=== PATIENT | female | born 1965 | race Caucasian/White ===

== ENCOUNTER → 2021-02-13 | Outpatient (CLI) | payer BC, SELFPAY | END | disposition home or self-care (01) | PROVIDERS: PCP Internal Medicine; Referring Provider Otolaryngology Otolaryngology/Facial Plastic Surgery; Visit Provider Otolaryngology Otolaryngology/Facial Plastic Surgery | DX: J32.9 Chronic sinusitis, unspecified (principal) | CPT/HCPCS: 87070; 87077; 87186; 87205 ==

== ENCOUNTER → 2021-03-15 07:23 | Outpatient (CLI) | payer BC, SELFPAY ==
--- NOTE | 2021-03-15 07:31 | US_ITS ---
STUDY: THYROID ULTRASOUND REASON FOR EXAM: Female, 55 years old. FATIGUE abnormal labs TECHNIQUE: Ultrasound evaluation of the thyroid was performed with real-time and static ramirez-scale imaging. COMPARISON: None. FINDINGS: RIGHT LOBE: The right lobe of the thyroid gland measures 4.3 cm x 1.2 cm x 1 cm. There is a heterogeneous echotexture. There is a 1.6 cm x 0.9 cm x 1 cm solid hypoechoic nodule in the inferior pole. LEFT LOBE: The left lobe of the thyroid gland measures 3.9 cm x 1.2 cm x 0.9 cm. There is a heterogeneous echotexture. There are no demonstrated solid, cystic or complex lesions. ISTHMUS: The isthmus measures 3 mm. The regional lymph nodes are normal. US/Thyroid IMPRESSION: Heterogeneous appearance of both the right and left lobes of the thyroid gland. 1.6 HERBERT by 0.9 cm x 1 cm hypoechoic solid nodule in the inferior pole of the right lobe. Correlation with a nuclear medicine thyroid uptake and scan recommended. Electronically Signed: Jono Black MD at 9:41 EDT , Service support ,
== END ==
PROVIDERS: PCP Internal Medicine; Referring Provider Family Medicine; Visit Provider Family Medicine
DX: E04.1 Nontoxic single thyroid nodule (principal); R53.83 Other fatigue
CPT/HCPCS: 76536

== ENCOUNTER → 2021-04-06 | Outpatient (CLI) | payer BC, SELFPAY ==
[2021-04-06 09:20] LABS: (24 HR) Urine Calcium 111.7 mg/24 HR (42.0-353.0); 24HR UR TOTAL VOLUME 1025 ml; Calcium Urine pH Range 1; Urine Calcium (Random) 10.9 (Not Estab.)
[2021-05-03 12:37] LABS: 24H Urine Creat. Total Vol. 1.03 L; 24HR. Urine Creatinine 1.11 g/24 HR (0.70-1.90)
== END | disposition home or self-care (01) ==
LOC: LABSPEC 08:23
PROVIDERS: PCP Internal Medicine; Referring Provider Family Medicine; Visit Provider Family Medicine
DX: E83.52 Hypercalcemia (principal)
CPT/HCPCS: 81050; 82340; 82570

== ENCOUNTER 2021-04-25 12:34 | Emergency (ER) | payer BC, SELFPAY ==
[2021-04-25 12:35] VITALS: BP 138/81; PULSE 78; RESP 18; TEMP 36.6; O2SAT 100; BMI 24.3
[2021-04-25 13:00] VITALS: RESP 16
--- NOTE | 2021-04-25 13:11 | US_ITS ---
We are attempting to reach an attending provider to discuss findings. An addendum with communication details will be sent when the communication is complete. STUDY: ABDOMINAL ULTRASOUND - RIGHT UPPER QUADRANT REASON FOR VISIT: Female, 55 years old PAIN TECHNIQUE: Ultrasound evaluation of the right upper quadrant was performed with real-time and static ramirez-scale imaging. TECHNICAL QUALITY: Adequate. COMPARISON: None. FINDINGS: Pancreas: Visualized portions of pancreas are unremarkable. Liver: Measures 15.7 cm. Liver shows normal echogenicity. No masses identified. Gallbladder: No stones or wall thickening. Positive sonographic Mendes''s sign. Common bile duct: Measures 6 mm. No intraductal stones identified. Right kidney: Measures 9.0 cm in length. Normal contour. No cysts. No masses, stones, or hydronephrosis identified. Renal cortical thickness appears normal. Additional findings: None. US/Gallbladder IMPRESSION: Positive sonographic MENDES sign without focal imaging abnormality demonstrated is nonspecific. Correlate clinically to exclude acute cholecystitis. Electronically Signed: Orville Vargas MD at 15:34 EDT Tel , Service support ,
[2021-04-25] MEDS: 0.9% Normal Saline 1,000 ML 1000 ML IV (13:25)
[2021-04-25 13:33] LABS: Absolute Lymphocyte Count 1.99 X10^3/uL (0.83-4.51); Absolute Neutrophil Count 2.5 X10^3/uL (2.0-7.7); Basophil# 0.04 X10^3/uL; Basophil% 0.8 % (0-1); Eosinophil# 0.11 X10^3/uL; Eosinophils% 2.1 % (0-5); Hematocrit 41.6 % (37-47); Hemoglobin 13.3 g/dL (12.0-15.0); Lymphocyte # 1.99 X10^3/ul (0.83-4.51); Lymphocyte % 38.6 % (19-41); Mean Corpuscular Hgb 29.9 pg (27.0-32.0); Mean Corpuscular Volume 93.5 fL (81-99); Mean Platelet Vol. 9.2 fl (6.2-12.0); Monocyte% 9.7 % (0-10); NRBC Flagged by Analyzer 0 % (0-5); Neutrophil # 2.51 X10^3/uL (2.7-7.7); Neutrophil % 48.6 % (47-70); Platelet Count 261 K/mm3 (150-450); RBC Distribution Width CV 13.2 % (11.6-14.6); RBC Distribution Width SD 45.4 fl (35.1-43.9); Red Blood Count 4.45 M/mm3 (4.2-5.4); White Blood Count 5.2 K/mm3 (4.4-11.0)
[2021-04-25 13:50] LABS: ALB/GLOB Ratio 0.9 RATIO (0.9-2.4); AST(SGOT) 25 U/L (15-37); Alanine Aminotransfer ALT/SGPT 39 U/L (13-56); Albumin, Serum 3.6 g/dL (3.2-5.0); Alkaline Phosphatase 72 U/L (45-117); Anion Gap 5 (5-15); BUN 17 mg/dL (7-18); Chloride 105 mmol/L (98-107); Creatinine, Serum 0.77 mg/dL (0.55-1.02); EST Glomerular Filtration Rate 82 mL/min (>60); Est Glom Filt Rate - Afr Amer 99 mL/min (>60); Estimated Creatinine Clearance 73.41 ml/min; Glucose 100 mg/dL (74-106); Lipase 232 U/L (73-393); Potassium 3.5 mmol/L (3.5-5.1); Protein, Total 7.6 g/dL (6.4-8.2); Sodium Level 140 mmol/L (136-145)
--- NOTE | 2021-04-25 13:57 | ED.VIS.GI ---
HPI HPI - GI History of Present Illness Chief Complaint: Abd Pain Informant: patient Narrative Narrative: Intermittent increasing epigastric abdominal pain for the past month however worsened over the past 5 days. Pain worse with eating. Reports gastric ulcer in the sixth grade. Denies vomiting or diarrhea. Last bowel movement yesterday. Nonbloody, no melena. Decreased urine output over 2 days due to decreased p.o. intake. PCP started her on omeprazole and Carafate a month ago that she has been taking. History of hysterectomy in the past.. No fevers.. Prior similar symptoms: Yes PFSH PFSH Medical History High calcium levels Hypothyroidism Tumor, thyroid Home Medications levothyroxine 88 mcg PO QWEEK 04/25/21 [History Last Taken Unknown] levothyroxine 100 mcg PO QWEEK 04/25/21 [History Last Taken Unknown] omeprazole 40 mg PO DAILY 04/25/21 [History Last Taken Unknown] sucralfate 1 g PO 4X/DAY 04/25/21 [History Last Taken Unknown] Allergy/AdvReac Type Severity Reaction Status Date / Time ciprofloxacin Allergy Other Verified 04/25/21 12:38 erythromycin base Allergy Rash Verified 04/25/21 12:39 levofloxacin Allergy Other Verified 04/25/21 12:39 moxifloxacin Allergy Other Verified 04/25/21 12:40 Penicillins Allergy Hives Verified 04/25/21 12:38 morphine AdvReac Vomiting Verified 04/25/21 12:38 Surgical History H/O: hysterectomy Social History Smoking Status: Never smoker ROS ROS ED Constitutional Constitutional ED: Denies chills, fever(s) or sweats Eyes Eyes: Denies change in vision ENT ENT ED: Denies dysphagia or sore throat Cardiovascular Cardiovascular: Denies chest pain, leg edema, palpitations or racing heartbeat Respiratory/Chest Respiratory/Chest: Denies cough, dyspnea or dyspnea on exertion Gastrointestinal Gastrointestinal: Reports abdominal pain; Denies diarrhea, nausea or vomiting Genitourinary Genitourinary ED: Denies dysuria, hematuria or urinary frequency Musculoskeletal Musculoskeletal: Denies back pain, extremity pain or neck pain Integumentary Denies rash or wounds Neurologic Neurologic: Denies headache(s), paresthesias or weakness EXAM Physical Exam Const Vital Signs: 04/25/21 12:35 04/25/21 13:00 04/25/21 15:00 Temperature 97.8 F Temperature Source Temporal Pulse Rate 78 Respiratory Rate 18 16 16 Blood Pressure 138/81 H Blood Pressure Mean 100 Pulse Ox 100 Oxygen Delivery Method Room Air Positive well nourished and well developed General Appearance ED: well developed and NAD HEENT Reports moist mucous membranes normocephalic and atraumatic Eyes PERRL, EOMs intact bilaterally and conjunctivae normal General Eye ED: Yes normal appearance of both eyes Neck no lymphadenopathy and supple General: Negative for tenderness Chest Wall Chest: Negative for tenderness Resp normal respiratory effort and normal air movement Effort and Inspection: symmetric chest movement; Negative for respiratory distress Cardio regular rate, regular rhythm and no murmurs Peripheral Pulses: pulses 2+ throughout GI normal to inspection, nondistended, normoactive bowel sounds GI Narrative: Tender palpation epigastric mild right upper quadrant tenderness no guarding or rebound. Negative McBurney's. Palpation: Negative for guarding or rebound tenderness present Back/Spine no CVA tenderness and no thoracic nor lumbar tenderness Extremity normal to inspection General Extremety ED: Negative for edema or tenderness General Extremity: Negative for edema Neuro oriented x3 and no sensory deficits noted Sensorium / Orientation: awake and alert Skin no rashes or lesions noted and no wounds MDM MDM MDM Narrative Medical decision making narrative: Patient epigastric mild right upper quadrant pain. Abdominal labs are all normal. Ultrasound gallbladder positive Mendes sign's however no structural findings. Initially given Pepcid. She is given GI cocktail with states transient release of symptoms. She denies any rectal bleeding or melena. Discussed with patient increase her omeprazole to twice a day should continue Carafate. I did speak with GI Dr. Friend, he will follow-up as an outpatient. All questions were answered. Lab Data Attestation: I reviewed the patient's lab results. Labs: Laboratory Results - last 24 hr 04/25/21 04/25/21 13:21 13:21 WBC 5.2 RBC 4.45 Hgb 13.3 Hct 41.6 MCV 93.5 MCH 29.9 MCHC 32.0 RDW Std Deviation 45.4 H RDW Coeff of Sarah Beth 13.2 Plt Count 261 MPV 9.2 Immature Gran % (Auto) 0.200 Neut % (Auto) 48.6 Lymph % (Auto) 38.6 Zapata % (Auto) 9.7 Eos % (Auto) 2.1 Baso % (Auto) 0.8 Absolute Neuts (auto) 2.5 Absolute Lymphs (auto) 1.99 Nucleated RBC % 0 Sodium 140 Potassium 3.5 Chloride 105 Carbon Dioxide 30.0 Anion Gap 5 BUN 17 Creatinine 0.77 Estim Creat Clear Calc 73.41 Est GFR (MDRD) Af Amer 99 Est GFR (MDRD) Non-Af 82 BUN/Creatinine Ratio 22.0 H Glucose 100 Calcium 11.0 H Total Bilirubin 1.10 H AST 25 ALT 39 Alkaline Phosphatase 72 Total Protein 7.6 Albumin 3.6 Globulin 4.0 Albumin/Globulin Ratio 0.9 Lipase 232 Radiography Diagnostic Testing: Radiology Impression Gallbladder Ultrasound 04/25/21 13:11 IMPRESSION: Positive sonographic MENDES sign without focal imaging abnormality demonstrated is nonspecific. Correlate clinically to exclude acute cholecystitis. Electronically Signed: Orville Vargas MD at 15:34 EDT Tel , Service support , ADDENDUM: 04/25/21 1556 IMPRESSION: Positive sonographic MENDES sign without focal imaging abnormality demonstrated is nonspecific. Correlate clinically to exclude acute cholecystitis. N.B. : The above Results were Read Back by Orville Vargas MD to Ciro Suarez DO, DO, and understanding confirmed on 04/25/2021 15:49:42 (ET). Electronically Signed: Orville Vargas MD at 15:34 EDT Tel , Service support , Discharge Plan Triage Chief Complaint: Abd Pain ED Provider: Ciro Suarez Dx/Rx/DC Orders Clinical Impression: Gastritis, Abdominal pain Instructions: ED Gastritis (Adult) Prescriptions: No Action levothyroxine 88 mcg Capsule 88 mcg PO QWEEK RF: 0 sucralfate 100 mg/mL suspension 1 g PO 4X/DAY RF: 0 omeprazole 40 mg Capsule,Delayed Release(Dr/Ec) 40 mg PO DAILY RF: 0 levothyroxine 100 mcg Capsule 100 mcg PO QWEEK RF: 0 Primary Care Provider: Marva Stewart Referrals: Marva Stewart MD [Primary Care Provider] - David Mccann DO [STAFF PHYSICIAN] - 3-5 Days Activity Restrictions/Additional Instructions: Increase your omeprazole to twice a day. Continue Carafate. Follow-up with Dr. Mccann. Disposition Disposition: Home, Self Care Discharge Date/Time: 04/25/21 17:03
[2021-04-25] MEDS: Famotidine 200 MG/20 ML MDV 20 MG in 0.9% Normal Saline (Pres. free 8 ML 300 MG IV (14:01)
[2021-04-25 15:00] VITALS: RESP 16
[2021-04-25] MEDS: Mag Hydrox/Al Hydrox/Simeth 30 ML UDC PO (15:39)
== END 2021-04-25 17:03 | disposition home or self-care (01) ==
PROVIDERS: Emergency Provider Emergency Medicine; PCP Internal Medicine
DX: K29.70 Gastritis, unspecified, without bleeding (principal); R10.13 Epigastric pain; E03.9 Hypothyroidism, unspecified; Z79.899 Other long term (current) drug therapy
CPT/HCPCS: 76705; 80053; 83690; 85025; 96361; 96374; 99284; J7030; A4216; J3490

== ENCOUNTER 2021-04-27 07:00 | Day surgery (SDC) | payer BC, SELFPAY ==
[2021-04-27] VITALS (8 sets, daily range): BP systolic 114–128; BP diastolic 69–85; PULSE 65–80; RESP 14–18; TEMP 36.5–37.1; O2SAT 99–100; BMI 23.6
--- NOTE | 2021-04-27 | GASB_PTH ---
PATIENT: SERENITY MCGRATH LOC: EN U#:[id number] AGE/SX: 55/F ROOM: RE04/27/[address]: Dr. Lynne Quevedo MD : 1965 BED: DIS: 04/27/2021 SPEC #: [id number] RECD: 04/27/21 11:11 STATUS: KRISSY TANK #: [id number] EDDY: 04/27/21 00:[address]: Lynne Quevedo DEPT: SURGICAL PATHOLOGY RECD BY: Michael Maciel ENTERED: 04/27/21 11:11 SP TYPE: Gastric Bx OTHR DR: Dr. Marva Stewart MD Tissues: Gastric mucous membrane Procedures: Surgery Specimen Level IV HEADER OPERATION: EGD ([facility]) PRE-OP DIAGNOSIS: Epigastric pain TISSUE SUBMITTED: Biopsy antrum for H. pylori and path MICROSCOPIC DIAGNOSIS Gastric antrum, biopsy: Mild chronic gastritis. See comment. AM:hernan 04/30/2021 COMMENT The results of immunohistochemistry for Helicobacter pylori will be reported separately ([id number]). MICROSCOPIC DESCRIPTION Slides are reviewed. GROSS DESCRIPTION Received in fixative is one container labeled with the patient's name and designated biopsy antrum. The specimen consists of one irregular fragment of light soni soft tissue that measures 0.3 x 0.3 x 0.1 cm. The specimen is totally submitted in one cassette. / SJ:rg 04/27/21 TC:3 CPT: 05217
--- NOTE | 2021-04-27 07:41 | HP.PCM_ITS ---
History and Physical Date of Admission: 04/27/21 Date of Service: 04/26/21 Intake Vital Signs 04/26/21 13:15 Height 5 ft 5 in Weight: 143 lb BMI 23.8 BP 164/92 H Blood Pressure Location Rt brachial Position Sitting Respiration 18 Intake Visit Reasons: abd pain Chief Complaint: abd pain Hand Turner Required: No Is patient in pain?: Yes (epigastric abd ) Allergies ciprofloxacin Allergy (Verified 04/26/21 13:16) Other erythromycin base Allergy (Verified 04/26/21 13:16) Rash levofloxacin Allergy (Verified 04/26/21 13:16) Other moxifloxacin Allergy (Verified 04/26/21 13:16) Other Penicillins Allergy (Verified 04/26/21 13:16) Hives morphine Adverse Reaction (Verified 04/26/21 13:16) Vomiting Medications levothyroxine 88 mcg PO QWEEK 04/25/21 [History Confirmed 04/26/21] levothyroxine 100 mcg PO QWEEK 04/25/21 [History Confirmed 04/26/21] sucralfate 1 g PO 4X/DAY 04/25/21 [History Confirmed 04/26/21] pantoprazole 40 mg tablet,delayed release 40 mg PO DAILY #30 tab 04/26/21 [Rx Confirmed 04/26/21] [facility] Medical History (Updated 04/26/21 @ 13:[address] Lynne Quevedo MD) High calcium levels Hyperparathyroidism Hypothyroidism Tumor, thyroid Surgical History H/O: hysterectomy S/P section S/P tonsillectomy Status post cervical polyp removal Family History Mother Diabetes CAD (coronary artery disease) Hypertension Thyroid disorder Gastric ulcer Father Hypertension Grandmother Heart disease Grandfather Heart disease Thyroid disorder Aunt Cancer Uncle Thyroid disorder Social History Smoking Status: Never smoker alcohol intake: never HPI HPI HPI: SERENITY MCGRATH, is a 55 F who presents to the office today for abdominal pain. Patient states that it has been going on for couple months however the last 5 days has gotten worse. Complains of epigastric pain since she eats or drinks anything that gets worse otherwise she does have a constant dull ache there. Patient previously had history of gastric ulcer in 2017. Patient did start taking omeprazole about a month ago and just started taking Carafate this last week. Patient states Carafate does help some with the pain but she does notice that it does wear off. Patient states she has not been able to eat much for the last week but has been able to drink water but that still does cause her some increased discomfort. Patient had a previous EGD in 2017 when she had the gastric ulcer and she also have a colonoscopy at that time which was negative. Patient is also currently being seen at [facility] due to hypercalcemia questionable mass on her thyroid she is currently seeing who is a surgical oncologist, but waiting to get into endocrinology. ROS General General: Yes weight change and fatigue; No appetite, colon cancer, breast cancer or weakness HEENT HEENT: Yes difficulty swallowing; No eye injury, eye surgery, swollen glands or hoarseness Endo Endocrine: Yes thyroid disease; No diabetes mellitus, thyroid cancer, Hair loss, heat intolerance or cold intolerance Skin Skin: No rash or changing moles Breast Breast: No left breast lump, right breast lump, nipple discharge, breast pain, abnormal mammogram, abnormal US or breast enlargement Musc Musculoskeletal: Yes back problems and arthritis; No rheumatoid arthritis, gout or joint pain Cardio Cardiovascular: No murmur, pacemaker, heart disease, atrial fibrillation, high blood pressure, heart attack, heart stent, palpitations, shortness of breat with exertion or chest pain Psych Psychiatric: No depression, anxiety or hearing voices Resp Respiratory: No shortness of breath, No sleep apnea, Yes cough, No COPD, No asthma, No emphysema and No wheezing Gastro Gastrointestinal: Yes abdominal pain, No nausea or vomiting, No diarrhea, Yes constipation, No blood in stool, Yes acid reflux, No hemorrhoids, Yes ulcers, No gallbladder problem and No black,tarry stools Manuel Hematologic: No blood thinners, No blood disorders, No bleeding, No anemia and No blood clots Neuro Neurologic: No system reviewed and no additional complaints, except as documented, No as per HPI, No abnormal gait, No abnormal hearing, No abnormal movements, No abnormal speech, No behavioral changes, No burning sensations, No confusion, No convulsions, No disequilibrium, No dizziness, No localized weakness, No frequent falls, No headache(s), No lack of coordination, No loss of vision, No memory loss, No numbness, No other visual disturbances, No radicular pain, No restless legs, No sensory deficit, No syncope, No tingling, No tremor(s), No weakness and No other Exam Const General: cooperative, healthy appearing, comfortable and no acute distress Resp Effort & Inspection: normal respiratory effort Cardio Rate: regular rate GI Inspection: non-distended Palpation: soft, no guarding and tender in the epigastrum and in the LUQ; with no rebound tenderness Skin General: no rashes or lesions noted Neuro General: patient oriented x3 Psych Affect: normal affect COVID (Procedure Consent) Procedure Criteria Procedure Criteria: Yes Elective The surgeon/proceduralist and patient have discussed in detail the risk of exposure to and/or potential harm posed by the COVID-19 virus with having a surgery/procedure at this time versus the risk of delaying the surgery/procedure. It is not possible to know either the risk of delaying the surgery or procedure or chance of getting an infection with perfect accuracy, but a joint decision was made between the patient and the surgeon/proceduralist to proceed at this time with the scheduled surgery/procedure as indicated on the consent form. Assessment and Plan Assessment and Plan (1) Epigastric pain: Status: Acute Plan - Dr. Lynne Quevedo MD: I have discussed the above with the patient. I have offered the patient EGD for evaluation. I have explained the risks/benefits of the procedure and described the procedure. I have discussed the risks with the patient, including but not limited to: infection, bleeding, perforation of the GI tract requiring emergency surgery, inability to complete the procedure, injury to any internal organs, complications of anesthesia, etc. - the patient understands and agrees to proceed. I have answered all the patient's questions to the patient's satisfaction and the patient has no further questions. Patient does have some other various complaints of muscular pain in her back and legs which likely due to her hypercalcemia which on last check was 11. Previous to that per patient was 12. Lynne Quevedo M.D. Pager: [phone] [facility] [address] [place] [address], [address] [place] [address] Office: [phone] (2) High calcium levels: Status: Acute Plan Details Other Medications: New: pantoprazole Take 1 hour after levothyroxine or take at night. 40 mg PO DAILY 30 tabs 3RF Discontinued: omeprazole Discontinued Reason: Order Changed 40 mg PO DAILY Other Orders: Orders: EGD Today Coding Level of Care Code Off vis,new,level 3 Diagnoses Epigastric pain R10.13 High calcium levels E83.52 04/26/21 1342<Electronically signed by Lynne Quevedo MD>Date Lynne Quevedo MD
[2021-04-27] MEDS: Lactated Ringers 1,000 ML 100 ML IV (07:49)
--- NOTE | 2021-04-27 08:00 | IMM_PTH ---
PATIENT: SERENITY MCGRATH LOC: EN U#:[id number] AGE/SX: 55/F ROOM: RE04/27/[address]: Dr. Lynne Quevedo MD : 1965 BED: DIS: 04/27/2021 SPEC #: [id number] RECD: 04/30/21 08:57 STATUS: KRISSY REQ #: [id number] EDDY: 04/27/21 08:[address]: Lynne Quevedo DEPT: IMMUNOHISTOCHEMISTRY RECD BY: Skylar Luz ENTERED: 04/30/21 08:58 SP TYPE: IMMUNO OTHR DR: Dr. Marva Stewart MD Tissues: Stomach, NOS Procedures: H Pylori (initial) PHYSICIAN & INSTITUTION [place] [id number] SPECIMEN INFORMATION: Tissue Source: Antrum biopsy Clinical Info: Epigastric pain Specimen Number: [id number] CPT code: 96595 METHODOLOGY: Deparaffinized sections of prefer/formalin-fixed tissue or PAP/DQ stained slides are incubated with monoclonal/polyclonal antibodies/oligonucleotide probes. Localization is made via biotin free immunoperoxidase method. Appropriate controls are performed and reacted as expected. Results on target cell population are indicated in the following table: RESULTS: ANTIBODY / CLONE RESULT H Pylori (polyclonal) negative These tests were developed and their performance characteristics determined by [facility]. They may not have been cleared or approved by the U.S. Food and Drug Administration. The FDA has determined that such clearance or approval is not necessary. INTERPRETATION: Antrum biopsy: Negative for Helicobacter pylori organisms. AM:hernan 04/30/2021
--- NOTE | 2021-04-27 08:19 | OP.EGD_ITS ---
Patient Name: Gay Carey Procedure Date: 04/27/2021 7:48 AM Date of : 1965 Age: 55 Procedure: Upper GI endoscopy Indications: Epigastric abdominal pain, Abdominal pain in the left upper quadrant Providers: Lynne Quevedo MD Medicines: Monitored Anesthesia Care Patient Profile: This is a 55 year old female. Complications: No immediate complications. Procedure: Pre-Anesthesia Assessment: - Prior to the procedure, a History and Physical was performed, and patient medications and allergies were reviewed. The patient's tolerance of previous anesthesia was also reviewed. The risks and benefits of the procedure and the sedation options and risks were discussed with the patient. All questions were answered, and informed consent was obtained. Prior Anticoagulants: The patient has taken no previous anticoagulant or antiplatelet agents. ASA Grade Assessment: Per anesthesia. After reviewing the risks and benefits, the patient was deemed in satisfactory condition to undergo the procedure. After obtaining informed consent, the endoscope was passed under direct vision. Throughout the procedure, the patient's blood pressure, pulse, and oxygen saturations were monitored continuously. The Endoscope was introduced through the mouth, and advanced to the second part of duodenum. The upper GI endoscopy was accomplished without difficulty. The patient tolerated the procedure well. Scope In: 8:05:53 AM Scope Out: 8:10:11 AM Total Procedure Duration Time 0 hours 4 minutes 18 seconds Findings: The Z-line was regular and was found 40 cm from the incisors. Moderate inflammation characterized by erythema was found in the gastric antrum. Biopsies were taken with a cold forceps for histology. Biopsies were taken with a cold forceps for Helicobacter pylori cultures. The examined duodenum was normal. The cardia and gastric fundus were normal on retroflexion. Two less than 5 mm sessile polyps with no bleeding and no stigmata of recent bleeding were found in the gastric fundus. Impression: - Z-line regular, 40 cm from the incisors. - Gastritis. Biopsied. - Normal examined duodenum. - Two gastric (fundic gland) polyps. Recommendation: - Await pathology results. - Discharge patient to home. - Resume previous diet. - Use Protonix (pantoprazole) 40 mg IV x1 then 40 mg PO daily. - Continue present medications. Procedure Code(s): --- Professional --- 62205, Esophagogastroduodenoscopy, flexible, transoral; with biopsy, single or multiple Diagnosis Code(s): --- Professional --- K29.70, Gastritis, unspecified, without bleeding R10.13, Epigastric pain R10.12, Left upper quadrant pain CPT copyright 2017 [employer]. All rights reserved. The codes documented in this report are preliminary and upon card dealer review may be revised to meet current compliance requirements. MD Lynne Turner MD 04/27/2021 8:18:43 AM This report has been signed electronically. Number of Addenda: 0 Note Initiated On: 04/27/2021 7:48 AM
--- NOTE | 2021-04-27 08:19 | OP.CCLET_ITS ---
04/27/2021 [facility] Re : Upper GI endoscopy procedure for Gay Carey Dear This procedure was performed on Tuesday, April 27, 2021. My impressions and recommendations are as follows: Impressions : - Z-line regular, 40 cm from the incisors. - Gastritis. Biopsied. - Normal examined duodenum. - Two gastric (fundic gland) polyps. Recommendations : - Await pathology results. - Discharge patient to home. - Resume previous diet. - Use Protonix (pantoprazole) 40 mg IV x1 then 40 mg PO daily. - Continue present medications. My findings are described in the full procedure note, which is enclosed. If I can be of further assistance, please feel free to contact me at Doctor phone number(s): , Work: . Sincerely, MD Lynne Turner MD 04/27/2021 8:18:43 AM This report has been signed electronically.
== END 2021-04-27 09:33 ==
LOC: EN 07:00 → AC 07:01
PROVIDERS: PCP Internal Medicine; Referring Provider Internal Medicine; Visit Provider Surgery
PROC: 0DJ08ZZ Inspection of Upper Intestinal Tract, Via Natural or Artificial Opening Endoscopic (ICD-10-PCS; CPT 43235; principal; 2021-04-27 07:55)
DX: K29.50 Unspecified chronic gastritis without bleeding (principal); E03.9 Hypothyroidism, unspecified; Z79.899 Other long term (current) drug therapy
CPT/HCPCS: 43239; 88305; 88342; J7120; J2405

== ENCOUNTER → 2021-05-11 | Outpatient (CLI) | payer BC, SELFPAY ==
--- NOTE | 2021-05-11 07:55 | FLU_PTH ---
PATIENT: SERENITY MCGRATH LOC: JONATHON #:[id number] AGE/SX: 55/F ROOM: RE05/11/[address]: Dr. Gume Pinto MD : 1965 BED: DIS: 05/11/2021 SPEC #: [id number] RECD: 05/11/21 11:16 STATUS: KRISSY REQ #: [id number] EDDY: 05/11/21 07:[address]: Gume Pinto DEPT: CYTOLOGY RECD BY: Karishma Cuevas ENTERED: 05/11/21 12:39 SP TYPE: Fluid OTHR DR: Dr. Marva Stewart MD Tissues: A - Thyroid gland, NOS B - Thyroid gland, NOS Procedures: Special Stain Group II Surgery Specimen Level IV Cytospin Fluid Cytology Other HEADER OPERATION: Fine needle aspiration, right thyroid PRE-OP DIAGNOSIS: Right thyroid nodule TISSUE SUBMITTED: A ? Right thyroid fluid, B ? Right thyroid slides x4 DIAGNOSIS CYTOLOGY A. Fine needle aspiration, right thyroid nodule (cytospin and cell block): Negative for malignant cells. See comment. B. Fine needle aspiration, right thyroid nodule (smears): Negative for malignant cells. See comment. AM:hernan 05/14/2021 COMMENT A. The specimen primarily contains blood and scattered polymorphous lymphocytes. B. The specimen contains blood and rare polymorphous lymphocytes. Follicular cells are not identified. The specimen is insufficient for evaluation. Clinical correlation is suggested. CYTOLOGY STUDY Slides are reviewed. CYTOLOGY GROSS A - Received is 30 ml of red cloudy fluid labeled with the patient's name and and designated per the requisition as right thyroid. Submitted for cytology preparation including cell block. B - Received are four smears labeled with the patient's name and designated per the requisition as right thyroid. Submitted for staining. / hernan 05/11/2021 TC:5 CPT: 59394, 92673, 73807
== END | disposition home or self-care (01) ==
LOC: LABSPEC 11:31
PROVIDERS: PCP Internal Medicine; Visit Provider Surgery
DX: E04.1 Nontoxic single thyroid nodule (principal)
CPT/HCPCS: 88108; 88161; 88305; 88313

== ENCOUNTER → 2021-07-16 07:24 | Outpatient (CLI) | payer BC, SELFPAY ==
--- NOTE | 2021-07-16 07:28 | US_ITS ---
STUDY: RENAL ULTRASOUND - COMPLETE REASON FOR EXAM: Female, 55 years old. HYPERCALCEMIA TECHNIQUE: Ultrasound evaluation of the kidneys was performed with real-time and static ramsey-scale imaging. COMPARISON: None. FINDINGS: RIGHT KIDNEY: Normal location of the right kidney, which is normal in size. The right kidney measures 10.2 cm x 5.2 cm x 5.7 cm. There is a normal cortex of the right kidney. The renal cortex measures 2.1 cm. There is no right renal mass or cyst. There are no right renal calculi. There is no right hydronephrosis. DISTAL RIGHT URETER: There is non-visualization of the distal right ureter. There is no demonstrated right ureterovesical junction calculus. There is a visualized right ureteral jet. LEFT KIDNEY: Normal location of the left kidney, which is normal in size. The left kidney measures 10.8 cm x 4.7 cm x 5 cm. There is a normal cortex of the left kidney. The renal cortex measures 1.7 cm. There is no left renal mass or cyst. There are no left renal calculi. There is no left hydronephrosis. DISTAL LEFT URETER: There is non-visualization of the distal left ureter. There is no demonstrated left ureterovesical junction calculus. There is a visualized left ureteral jet. BLADDER: The distended urinary bladder has a volume of 113 ml. There is a normal wall thickness of the distended urinary bladder. There is no demonstrated mass within the urinary bladder. There are no demonstrated bladder calculi. US/Kidney and Bladder IMPRESSION: Normal ultrasound of the kidneys and urinary bladder. Electronically Signed: Jono Black MD at 8:34 EST , Service support ,
== END ==
PROVIDERS: PCP Internal Medicine; Referring Provider Nurse Practitioner Adult Health; Visit Provider Nurse Practitioner Adult Health
DX: E83.52 Hypercalcemia (principal)
CPT/HCPCS: 76770

== ENCOUNTER → 2021-12-06 | Outpatient (CLI) | payer OTHER, SELFPAY ==
--- NOTE | 2021-12-06 12:54 | US_ITS ---
STUDY: THYROID ULTRASOUND REASON FOR EXAM: Female, 56 years old. hypothyroidism TECHNIQUE: Ultrasound evaluation of the thyroid was performed with real-time and static ramirez-scale imaging. COMPARISON: 03/15/2021 FINDINGS: RIGHT LOBE: The right lobe of the thyroid gland measures 5.0 x 1.1 x 1.0 cm. There is a heterogeneous echotexture. 1.5 x 0.9 x 1.0 cm, stable. This nodule is solid or almost completely solid, hypoechoic, [id number], smoothly marginated and contains no echogenic foci. TI-RADS points: 4. TI-RADS category: TR4. This nodule is moderately suspicious. Recommend follow-up thyroid ultrasounds at 1, 2, 3 and 5 years. LEFT LOBE: The left lobe of the thyroid gland measures 3.7 x 1.0 x 0.7 cm. There is a heterogeneous echotexture. There are no demonstrated solid, cystic or complex lesions. ISTHMUS: The isthmus measures 1.4 mm. The regional lymph nodes are normal. US/Thyroid IMPRESSION: 1. Stable right thyroid lobe nodule. Recommend follow-up ultrasound in one year, as above. Electronically Signed: Dov Landis MD ([place]) at 16:52 EDT ,
== END | disposition home or self-care (01) ==
LOC: US 12:53
PROVIDERS: PCP Internal Medicine; Visit Provider Surgery
DX: E03.9 Hypothyroidism, unspecified (principal); E04.1 Nontoxic single thyroid nodule
CPT/HCPCS: 76536

== ENCOUNTER → 2022-02-28 | Outpatient (CLI) | payer OTHER, SELFPAY ==
--- NOTE | 2022-02-28 08:35 | CT_ITS ---
EXAM: CT ABDOMEN AND PELVIS WITH INTRAVENOUS CONTRAST CLINICAL INDICATION: COLICKY ABD PAIN TECHNIQUE: Helically acquired images were obtained of the abdomen and pelvis with intravenous contrast. This CT exam was performed using one or more of the following dose reduction techniques: automated exposure control, adjustment of the mA and/or kV according to patient size, and/or use of iterative reconstruction technique. This report was created using [employer] report generation technology. CONTRAST: Oral and amp; IV Readi-CAT and amp; 100mL Isovue-300 COMPARISON: None. FINDINGS: LOWER THORAX: Normal. Lung bases are clear. No cardiomegaly. No pericardial effusion. ABDOMEN: LIVER: Normal. Homogeneous. No focal mass. GALLBLADDER AND BILE DUCTS: Normal. No calcified gallstones. No gallbladder distention or wall edema. No intra- or extrahepatic biliary ductal dilation. PANCREAS: Normal. No focal cystic or solid mass. SPLEEN: Normal. Normal size without focal cystic or solid mass. ADRENALS: Normal. No nodules. KIDNEYS AND URETERS: Normal. Normal renal size and position. No hydronephrosis. STOMACH AND BOWEL: Moderate stool burden within the large bowel. PELVIS: APPENDIX: Appendix is visualized and normal in appearance. BLADDER: Normal. REPRODUCTIVE: Uterus is absent. ABDOMEN and PELVIS: INTRAPERITONEAL SPACE: Normal. No ascites or other fluid collection. No free air. BONES/JOINTS: Normal. No suspicious lytic or blastic abnormality. SOFT TISSUES: Normal. No discrete abdominal or pelvic wall hernia. VASCULATURE: Normal. Abdominal aorta is non-dilated. LYMPH NODES: Normal. No enlarged lymph nodes. CT/Abdomen/Pelvis WITH Contrast IMPRESSION: No acute abdominal or pelvic abnormality. Constipation. Electronically Signed: Cezar Altamirano MD at 11:05 EDT ,
--- NOTE | 2022-02-28 09:08 | RAD_ITS ---
EXAM: XR LEFT FOOT COMPLETE, 3 OR MORE VIEWS CLINICAL INDICATION: PAIN TECHNIQUE: Frontal, lateral and oblique views of the left foot. This report was created using [employer] report generation technology. COMPARISON: None. FINDINGS: BONES/JOINTS: Normal. No acute fracture. No subluxation. Normal alignment. Preservation of the joint space. No sclerotic or destructive changes observed. SOFT TISSUES: Normal. No soft tissue swelling or gas. No radiopaque foreign body. RAD/Foot min 3 Views IMPRESSION: Intact left foot. Electronically Signed: Cezar Altamirano MD at 11:26 EDT ,
== END | disposition home or self-care (01) ==
LOC: CT 08:32 → RAD 08:36 → CT 08:37
PROVIDERS: PCP Internal Medicine; Referring Provider Internal Medicine; Visit Provider Internal Medicine
DX: K21.9 Gastro-esophageal reflux disease without esophagitis (principal); K58.9 Irritable bowel syndrome, unspecified; K59.00 Constipation, unspecified; M79.672 Pain in left foot
CPT/HCPCS: 73630; 74177; Q9967